=== PATIENT | male | born 1955 | race Caucasian/White ===

== ENCOUNTER → 2016-10-13 | Outpatient (CLI) | payer BC ==
[~2016-10-13] MED LIST: ANEXSIA 7.5/3251 TA1 PO; BAYER ASPIRIN325 M1 PO; BYSTOLIC5 MG PO; CHLOROQUINE PH250 MG PO; LITE COAT ASPI325 M2 PO; ONDANSETRON HCL4 MG PO; PRAVASTATIN SOD40 MG PO; TYLENOL #3 PO; VALSARTAN-HCTZ1 EAC3 PO; VALSARTAN-HCTZ1 EAC4 PO
--- NOTE | ~2016-10-13 | CR63 ---
[facility] A Service of [facility] [place] RADIOLOGY TEXT RESULTS PATIENT: CASEY RADER LOCATION: [facility] : 55 UNIT #: [id number] AGE: [address]: Isaiah Agee MD SEX: M ORDER DR: [id number] [place] [id number] O MR#: [id number] Acc #: [id number] NAME: CASEY RADER : 1955 SEX: M STUDY DATE/TIME: 10/13/2016 16:14 UNIT: [facility] ROOM: STUDY DESCRIPTION: CR Chest 2 View Attending Physician: Isaiah Agee M.D. Referring Physician: Isaiah Agee M.D. Ordering Physician: Isaiah Agee M.D. Primary Care Physician: Lionel King M.D. MEDICAL IMAGING REPORT This report is preliminary unless electronic signature is present. EXAM PA and lateral chest, 10/13/2016 HISTORY 61-year-old male with cough and right upper chest pain for 2 months, getting worse. 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 There is chronic-appearing linear densities in the bilateral lower lobes, thought to represent areas of scarring. However, no acute airspace disease or consolidative changes are identified. No pleural effusion. Heart size is within normal limits. No acute osseous abnormalities. IMPRESSION 1. Chronic-appearing linear scarring in the lung bases, similar to previous study. 2. No acute chest findings. 3. Congenital variant of azygos lobe. Dictated by... Freda Elliott M.D. THIS IS AN ELECTRONICALLY VERIFIED REPORT Freda Elliott M.D. at 10/17/2016 8:36 AM [place] TD: 10/14/2016 14:22 JOB #: [id number] [facility] A Service of [facility] [place] RADIOLOGY TEXT RESULTS PATIENT: CASEY RADER LOCATION: [facility] : 55 UNIT #: [id number] AGE: [address]: Isaiah Agee MD SEX: M ORDER DR: MEDICAL IMAGING REPORT Page 1 of 1
== END | disposition home or self-care (01) ==
LOC: SRAD 15:53
DX: R07.9 Chest pain, unspecified (principal); R05 Cough; Q33.1 Accessory lobe of lung
CPT/HCPCS: 71020